=== PATIENT | female | born 1990 | race Caucasian/White ===

== ENCOUNTER 2018-10-28 17:30 | Inpatient (IN) | payer BC ==
[2018-10-28 19:11] VITALS: BMI 34.6
[2018-10-28] MEDS: DEXTROSE 5%-LACTATED RINGERS 1,000 ML IV SCH ×2 (20:00→22:00)
[2018-10-28 21:00] LABS: BASO % 0.2 % (0-2.0); EOS % 0.4 % (0-4.5); HEMATOCRIT 33.4 % (32.4-45.2); HEMOGLOBIN 11.4 GM/dL (10.7-15.3); MCH 28.2 pg (25.7-33.7); MEAN CELL VOLUME 82.9 fl (80-96); MEAN PLT VOLUME 9.5 fl (7.5-11.1); MONO % 6.4 % (3.8-10.2); PLATELET COUNT 205 K/MM3 (134-434); RBC 4.03 M/mm3 (3.60-5.2); RDW 12.7 % (11.6-15.6); WHITE BLOOD COUNT 10.7 K/mm3 (4.0-10.0)
[2018-10-28] MEDS ORDERED: TUBERCULIN PPD 5 TU/0.1ML SYRINGE (IN PATIENT USE ONLY) ID ONE (21:00)
[2018-10-28 21:19] LABS: BLOOD UREA NITROGEN 8.5 mg/dL (7-18); CALCIUM 8.5 mg/dL (8.5-10.1); CREATININE 0.6 mg/dL (0.55-1.3); POTASSIUM 3.8 mmol/L (3.5-5.1)
[2018-10-28 21:24] LABS: INR 0.94 (0.83-1.09); PROTHROMBIN TIME (PATIENT) 11.1 SEC (9.7-13.0)
[2018-10-28 21:27] LABS: ACTIVATED PTT 30.1 SECONDS (25.2-36.5)
[2018-10-28] MEDS ORDERED: OXYTOCIN 30 UNITS in 0.9% NS 30 UNIT/500 ML INFUS.BAG IVPB SCH (21:45)
--- NOTE | 2018-10-28 21:46 | HP ---
Past Medical History - Primary Care Physician PCP:: Jameel Jules - Admission Chief Complaint: 28yo P1 with at EGA 39w4d admitted for labor indx. History of Present Illness: Pt with uncomplicated and favorable cervix, requested labor indx. Vag GBS Neg History Source: Patient, Medical Record Limitations to Obtaining History: No Limitations - Past Medical History EDUCATIONAL PROGRAM ASSISTANT: No: Alzheimer's, CVA, Dementia, Migraine, Multiple Sclerosis, Peripheral Neuropathy, Parkinson's, Seizure, Syncope, TIA, Vertigo, Other Cardiovascular: No: AFIB, Aneurysm, Aortic Insufficiency, Aortic Stenosis, CAD, CHF, Deep Vein Thrombosis, HTN, Hyperlipdemia, CA, Mitral Insufficiency, Mitral Stenosis, Murmur, Pulmonary Hypertension, Other Pulmonary: No: Asthma, Bronchitis, Cancer, COPD, O2 Dependent, Pneumonia, Previously Intubated, Pulmonary Embolus, Pulmonary Fibrosis, Sleep Apnea, Other Gastrointestinal: No: Ascites, Cancer, Constipation, Crohn's Disease, Diverticulitis, Diverticulosis, Esophageal Varices, Gastritis, GERD, GI Bleed, Hemorrhoids, Hiatal Hernia, Inflamatory Bowel Disease, Irritable Bowel Disease, Pancreatitis, Peptic Ulcer Disease, Ulcerative Colitis, Other Hepatobiliary: No: Cirrhosis, Cholelithiasis, Cholecystitis, Choledocholithiasis , Hepatitis A, Hepatitis B, Hepatitis C, Other Renal/: No: Renal Failure, Renal Inusuff, BPH, Cancer, Hematuria, Hemodialysis , Neurogenic Bladder, Renal Calculi, UTI, Other Reproductive: No: Ectopic , Endometriosis, Fibroids, PID, Polycystic Ovary Syndrome, Postmenopausal, Other ...: 2 ...Para: 1 ( x 1) ...Term: 1 ...: 0 ...Spon : 0 ...Induced : 0 ...Multiple Gestation: 0 ... Weeks Gestation by Dates: 39.4 ...EDC by Sono: 10/31/18 Heme/Onc: No: Anemia, B12 Deficiency, Bleeding Disorder, Cancer, Current Chemotherapy, Current Radiation Therapy, Hemochromatosis, Hypercoaguable State, Myeloproliferative Synd, Sickle Cell Disease, Sickle Cell Trait, Thrombocytopenia, Other Infectious Disease: No: AIDS, C-Diff, Herpes Zoster, HIV, MRSA, STD's, Tuberculosis, VREF, Other Psych: No: Addictions, Anxiety, Bipolar, Depression, Panic, Psychosis, Schizophrenia, Other Musculoskeletal: No: Bursitis, Chronic low back pain, Hemiparesis, Hemiplegia, Osteoarthritis, Paraplegia, Other Rheumatology: No: Fibromyalgia, Gout, Lupus, Rheumatoid Arthritis, Sarcoidosis, Vasculitis, Other ENT: No: Allergic Rhinitis, Sinusitis, Other Endocrine: No: Avery's Disease, Booker's Disease, Diabetes Insipidus, Diabetes Mellitus, Hyperparathyroidism, Hyperthyroidism, Hypothyroidism, Osteopenia, SIADH, Other Dermatology: No: Basal Cell, Cellulitis, Eczema, Melanoma, Psoriasis, Squamous Cell, Other - Past Surgical History Past Surgical History: Yes: None Hx Myomectomy: No Hx Transabdominal Cerclage: No - Smoking History Smoking history: Never smoked Have you smoked in the past 12 months: No - Alcohol/Substance Use Hx Alcohol Use: No History of Substance Use: reports: None - Social History Usual Living Arrangement: Yes: With Spouse, With Child ADL: Independent History of Recent Travel: No Home Medications - Allergies Allergies/Adverse Reactions: Allergies Allergy/AdvReac Type Severity Reaction Status Date / Time No Known Allergies Allergy Verified 07/26/15 12:13 - Home Medications Home Medications: Ambulatory Orders Vit/Iron Fum/Folic AC [ Tablet] 1 each PO DAILY 07/26/15 Ibuprofen [Motrin -] 600 mg PO TID #90 tablet 07/28/15 Family Disease History - Family Disease History Family History: Denies Review of Systems Findings/Remarks: Well appearing - Review of Systems Constitutional: reports: No Symptoms Eyes: reports: No Symptoms HENT: reports: No Symptoms Neck: reports: No Symptoms Cardiovascular: reports: No Symptoms Respiratory: reports: No Symptoms Gastrointestinal: reports: No Symptoms Genitourinary: reports: No Symptoms Breasts: reports: No Symptoms Reported Musculoskeletal: reports: No Symptoms Integumentary: reports: No Symptoms Neurological: reports: No Symptoms Endocrine: reports: No Symptoms Hematology/Lymphatic: reports: No Symptoms Psychiatric: reports: No Symptoms Pain Intensity: 0 Physical Exam - Maternity Vital Signs: Vital Signs Temperature 98.7 F 10/28/18 19:00 Pulse Rate 84 10/28/18 21:00 Respiratory Rate 18 10/28/18 21:00 Blood Pressure 122/86 10/28/18 21:00 O2 Sat by Pulse Oximetry (%) Constitutional: Yes: Well Nourished, No Distress, Calm Eyes: Yes: WNL, Conjunctiva Clear HENT: Yes: WNL, Atraumatic, Normocephalic Neck: Yes: WNL, Supple, Trachea Midline Cardiovascular: Yes: WNL, Regular Rate and Rhythm Lungs: Clear to auscultation, Normal air movement Breast(s): Yes: WNL - Abdominal Exam/OB Fundal Height: 39 Number of Fetuses: Single Presentation: Vertex Contractions: No Heart Rate (range): 130 Heart Rate Location: Midline Category: I Accelerations: Uniform Decelerations: None - Vaginal Exam/OB Vaginal Bleediing: No Speculum Exam: No Dilatation (cm): 3 Effacement (%): 70 Amniotic Membrane Status: Intact Presentation: Vertex/Position Station: -3 (Adequate gynecoid pelvimetry, EFW 3500 gm by Rolly's maneuvers) - Physical Exam Musculoskeletal: Yes: WNL Extremities: Yes: WNL Edema: No Integumentary: Yes: WNL Deep Tendon Reflex Grade: Normal +2 ...Motor Strength: WNL Psychiatric: Yes: WNL, Alert, Oriented - Labs Lab Results: CBC, BMP 10/28/18 19:20 10/28/18 19:20 Hemorrhage Risk Assessment - Risk Factors Medium Risk Factors: Yes: None High Risk Factors: Yes: None Risk Score: 1 Risk Level: Medium Risk Imaging - Results Ultrasound: Report Reviewed Assessment/Plan 28yo P1 with at EGA 39w4d admitted for labor indx. Pt is not in labor. Fetus with Category I tracing. Adequate gynecoid pelvimetry on exam. We had long discussion re: risks, benefits, and alternatives of labor induction. I explained the options of expectant management awaiting spontaneous labor, induction of labor, and elective section. The risks of uterine tachysystole, distress, uterine rupture, need for emergency C/S, hemorrhage, infection, scarring, etc. were discussed. We also discussed the risks of meconium aspiration, shoulder dystocia, and anesthesia options. The pt requested to proceed with induction. We discussed the alternative methods of induction with Cervidil, Cytotec, Folley ballon, and pitocin. The pt prefers Cervidil followed by pitocin, if needed.
[2018-10-28] MEDS ORDERED: OXYTOCIN 30 UNITS in 0.9% NS 30 UNIT/500 ML INFUS.BAG IVPB ONE (21:54)
[2018-10-29] MEDS ORDERED: ELECTROLYTE-148 SOLN 1,000 ML IV SCH (02:45)
[2018-10-29] MEDS ORDERED: BUTORPHANOL TARTRATE 2 MG/ML VIAL ONE (03:15)
[2018-10-29] MEDS ORDERED: PROMETHAZINE HCL 25 MG/1 ML VIAL ONE (03:15)
[2018-10-29] MEDS ORDERED: PROMETHAZINE HCL 25 MG/1 ML VIAL IVPB ONE (03:30)
[2018-10-29] MEDS ORDERED: BUTORPHANOL TARTRATE 2 MG/ML VIAL IVPB ONE (03:30)
[2018-10-29] MEDS ORDERED: FENTANYL/BUPIVACAINE/NS/PF - PCEA - 50 ML DISP.SYRIN EP ONE (07:51)
[2018-10-29] MEDS: FENTANYL/BUPIVACAINE/NS/PF - PCEA - 50 ML DISP.SYRIN EP SCH (07:55)
[2018-10-29] MEDS ORDERED: NALOXONE HCL 0.4 MG/ML VIAL IVPUSH PRN (08:08)
--- NOTE | 2018-10-29 08:14 | PN ---
Ante-Partal Exam - Subjective Subjective: No complaints, s/p epidural. Vital Signs: Vital Signs Temperature 97.9 F 10/29/18 06:00 Pulse Rate 71 10/29/18 07:00 Respiratory Rate 20 10/29/18 07:00 Blood Pressure 112/76 10/29/18 07:00 O2 Sat by Pulse Oximetry (%) Bleeding: No Headache: No Visual changes: No Right upper quadrant pain: No Pain (scale 1-10): 0 - Contractions Contractions: Yes Regularity: Regular (q3min) Intensity: Moderate Monitor Mode: External - Exam during Labor Heart Rate: 120 Variability: Moderate Heart Rate Location: Midline Category: I Monitor Accelerations: Present Monitor Decelerations: None Exam: Vaginal Dilatation (cm): 4 Effacement (%): 50 Amniotic Membrane Status: Ruptured (AROM) Amniotic Fluid: Clear Presentation: Vertex Station: -2 - Intrapartum Hemorrhage Risk Medium Risk Factors: None High Risk Factors: None Risk Score: 0 Risk Level: Low Risk - Assessment/Plan Assessment/Plan: 28yo female with at EGA 39w5d undergoing labor indx. Fetus with Category I tracing. Labor progressing in latent phase. Continue pitocin. Monitor labor progress.
[2018-10-29] MEDS ORDERED: BUPIVACAINE HCL/PF 0.25% (2.5MG/ML) 10 ML VIAL ONE (10:23)
[2018-10-29] MEDS ORDERED: OXYTOCIN 20 UNITS in 0.9% NS 20 UNIT/1,000 ML INFUS.BAG IV ONE ×2 (10:34→13:01)
[2018-10-29] MEDS ORDERED: ACETAMINOPHEN 325 MG TABLET (FP) ONE ×3 (11:56→20:04)
[2018-10-29] MEDS ORDERED: IBUPROFEN 600 MG TABLET (FP) PO ONE ×4 (11:56→20:04)
[2018-10-29] MEDS ORDERED: ACETAMINOPHEN 325 MG TABLET (FP) PO ONE (12:00)
[2018-10-29] MEDS ORDERED: BISACODYL 10 MG SUPP.RECT RC PRN (14:07)
[2018-10-29] MEDS ORDERED: WITCH HAZEL 50% (TUCKS) 40 PAD/JAR PAD TP PRN (14:07)
[2018-10-29] MEDS ORDERED: METHYLERGONOVINE MALEATE 0.2 MG/1 ML AMP IM PRN (14:07)
[2018-10-29] MEDS ORDERED: BENZOCAINE 20% 57 GM BOTTLE TP PRN (14:07)
[2018-10-29] MEDS ORDERED: BENZOCAINE 28 GM HEMORRHOIDAL OINTMENT TP PRN (14:07)
--- NOTE | 2018-10-29 14:11 | PN ---
Delivery - Delivery Vaginal Delivery: No Problems, Spontaneous Type of Anesthesia: Epidural Episiotomy/Laceration: Perineal Extension/lac, 2nd degree EBL (cc): 300 Delivery, Single - Stages of Labor Date 1st Stage Initiatied: 10/29/18 Time 1st Stage Initiated: 03:30 Date 2nd Stage Initiated: 10/29/18 Time 2nd Stage Initiated: 10:40 Date of Delivery: 10/29/18 Time of Delivery: 10:50 Date Placenta Delivered: 10/29/18 Time Placenta Delivered: 10:55 Placenta: Yes: Spontaneous, Normal Configuration - Condition of Asset Liability Analyst/Revival Clerk Present: No Gender: Male Weight: 3.6 kg Position: Left, OA Total Hours ROM (Hrs/Mins): 2hr 50mins - 1 Minute Total Score: 9 5 Minutes Total Score: 9 - Feeding Plan Initial Plan: Elected not to breastfeed exclusively throughout hospitalization Benefits of Exclusively reinforced: Yes Remarks - Remarks Remarks: Normal Vaginal delivery, no complications. Umbilical cord around body. Midline second degree perineal laceration repaired.
[2018-10-29] MEDS ORDERED: OXYTOCIN 20 UNITS in 0.9% NS 20 UNIT/1,000 ML INFUS.BAG IV SCH (14:15)
[2018-10-29] MEDS: ACETAMINOPHEN 325 MG TABLET (FP) PO PRN ×2 (16:15→20:15)
[2018-10-29] MEDS: IBUPROFEN 600 MG TABLET (FP) PO PRN ×2 (16:15→20:12)
[2018-10-30] MEDS: ACETAMINOPHEN 325 MG TABLET (FP) PO PRN ×3 (05:17→18:40)
[2018-10-30] MEDS: IBUPROFEN 600 MG TABLET (FP) PO PRN ×3 (05:17→18:40)
[2018-10-30 08:13] LABS: BASO % 0.4 % (0-2.0); EOS % 0.6 % (0-4.5); LYMPH % 21.3 % (8-40); MCHC 33.3 g/dl (32.0-36.0); MEAN PLT VOLUME 9.1 fl (7.5-11.1); MONO % 4.9 % (3.8-10.2); NEUT % 72.8 % (42.8-82.8); PLATELET COUNT 153 K/MM3 (134-434); RBC 3.21 M/mm3 (3.60-5.2); RDW 12.5 % (11.6-15.6); WHITE BLOOD COUNT 11.3 K/mm3 (4.0-10.0)
[2018-10-30] MEDS: PRENATAL VITAMINS W/ FOLIC ACID TABLET (FP) PO SCH (10:14)
[2018-10-30] MEDS: FENTANYL/BUPIVACAINE/NS/PF - PCEA - 50 ML DISP.SYRIN EP SCH (14:28)
[2018-10-30] MEDS ORDERED: SENNOSIDES/DOCUSATE COMBO (SENNA PLUS) TABLET (UD) PO PRN (22:00)
[2018-10-31] MEDS: ACETAMINOPHEN 325 MG TABLET (FP) PO PRN ×2 (04:11→09:26)
[2018-10-31] MEDS: IBUPROFEN 600 MG TABLET (FP) PO PRN ×2 (04:12→09:25)
--- NOTE | 2018-10-31 06:59 | DS ---
Physical Exam-VALANCE CUTTER Vital Signs: Vital Signs Temperature 97.8 F 10/30/18 09:50 Pulse Rate 76 10/30/18 09:50 Respiratory Rate 20 10/30/18 09:50 Blood Pressure 108/60 10/30/18 09:50 O2 Sat by Pulse Oximetry (%) 99 10/29/18 14:00 Constitutional: Yes: Well Nourished, No Distress, Calm Eyes: Yes: WNL, Conjunctiva Clear, EOM Intact HENT: Yes: WNL, Atraumatic, Normocephalic Neck: Yes: WNL, Supple, Trachea Midline Cardiovascular: Yes: WNL, Regular Rate and Rhythm Respiratory: Yes: WNL, Regular, CTA Bilaterally Gastrointestinal: Yes: WNL ...Rectal Exam: Yes: WNL Renal/: Yes: WNL ....Post : Yes: Uterus firm, Uterus non-tender, Slight lochia rubra Breast(s): Yes: WNL Musculoskeletal: Yes: WNL Extremities: Yes: WNL Edema: No Integumentary: Yes: WNL Neurological: Yes: WNL, Alert, Oriented ...Motor Strength: WNL Psychiatric: Yes: WNL, Alert, Oriented Labs: CBC, BMP 10/30/18 07:50 10/28/18 19:20 Delivery - Delivery Vaginal Delivery: No Problems, Spontaneous Type of Anesthesia: Epidural Episiotomy/Laceration: Perineal Extension/lac, 2nd degree EBL (cc): 300 Delivery, Single - Stages of Labor Date 1st Stage Initiatied: 10/29/18 Time 1st Stage Initiated: 03:30 Date 2nd Stage Initiated: 10/29/18 Time 2nd Stage Initiated: 10:40 Date of Delivery: 10/29/18 Time of Delivery: 10:50 Time Placenta Delivered: 10:55 Placenta: Yes: Spontaneous, Normal Configuration - Condition of Automotive Tire Tester/Bottom Crane Operator Present: No Infant Gender: Male Weight: 7 lb 15 oz Position: Left, OA Total Hours ROM (Hrs/Mins): 2hr 50mins - 1 Minute Total Score: 9 5 Minutes Total Score: 9 - [place] Feeding Plan Initial Plan: Elected not to breastfeed exclusively throughout hospitalization Benefits of Exclusively reinforced: Yes Discharge Summary Reason For Visit: LABOR Procedures: Principal: Hospital Course: no complication Condition: Good - Instructions Diet, Activity, Other Instructions: regular diet, if fever, pain, heavy vaginal bleeding call MD follow up office 4 weeks Referrals: Jameel Jules MD [Staff Physician] - Disposition: HOME - Home Medications Comprehensive Discharge Medication List: Ambulatory Orders Vit/Iron Fum/Folic AC [ Tablet] 1 each PO DAILY 07/26/15 Ibuprofen [Motrin -] 600 mg PO TID #90 tablet 07/28/15 Ibuprofen [Motrin -] 600 mg PO TID #21 tablet 10/31/18
--- NOTE | 2018-10-31 08:45 | CIRC ---
Circumcision Note Pediatric Clearance: Yes Informed Consent: Yes Instruments: 1.1 Gumco Local Anesthesia: Lidocaine 1% 1cc subcutaneously: Yes Complications: None Intervention: None Specimens Removed: foreskin Post-procedure diagnosis: Post Circumcision
[2018-10-31] MEDS: PRENATAL VITAMINS W/ FOLIC ACID TABLET (FP) PO SCH (09:25)
[2018-10-31 10:35] VITALS: BP 105/68; PULSE 83; TEMP 98.2
== END 2018-10-31 11:30 | disposition home or self-care (01) | DRG 807 ==
LOC: JLDR 17:30 → J3W 10-29 21:16
PROVIDERS: ADMIT Obstetrics & Gynecology; ATTEND Obstetrics & Gynecology
PROC: 0KQM0ZZ Repair Perineum Muscle, Open Approach (ICD-10-PCS; principal; 2018-10-29)
PROC: 10E0XZZ Delivery of Products of Conception, External Approach (ICD-10-PCS; 2018-10-29)
DX: O70.1 Second degree perineal laceration during delivery (principal); Z37.0 Single live birth; Z3A.39 39 weeks gestation of pregnancy
CPT/HCPCS: 36415; 59409; 80048; 85025; 85610; 85730; 86593; 86850; 86900; 86901; 87389